=== PATIENT | female | born 1980 | race Caucasian/White ===

== ENCOUNTER 2016-12-07 19:34 | Emergency (ER) | payer OTHER ==
--- NOTE | ~2016-12-07 | US105 ---
[facility] A Service of [facility] RADIOLOGY TEXT RESULTS PATIENT: CARLOS FAN LOCATION: SED : 84 UNIT #: [id number] AGE: [address]: Simeon Delgado MD SEX: F ORDER DR: [id number] [address] [address] [id number] MR#: [id number] Acc #: [id number] NAME: CARLOS FAN : 1980 SEX: F STUDY DATE/TIME: 12/07/2016 21:07 UNIT: SED ROOM: STUDY DESCRIPTION: US Preg Uterus Ltd 1 or More Attending Physician: Simeon Delgado M.D. Ordering Physician: Simeon Delgado M.D. Primary Care Physician: Primary Care Physician No MEDICAL IMAGING REPORT This report is preliminary unless electronic signature is present. EXAM Pelvic sonogram HISTORY 36-year-old female and bleeding for approximately 3 days. LMP 10/09/2016. Beta HCG 10,714. Patient with bleeding, cramping, passing clots. FINDINGS Real-time examination demonstrates diffuse thickening of the endometrium but no visible IUP or gestational sac. Based on the beta HCG, gestational sac should be clearly visible. Findings most likely indicative of failed intrauterine . Uterus measures about 11.1 x 5.8 x about 7 cm. The endometrium is thickened measuring just over 3 cm. Imaging of the adnexa demonstrates no complex masses. The left, right ovaries appear normal. No free fluid. Both endovaginal and transabdominal scanning was performed. IMPRESSION Diffuse high-level echoes within the endometrial cavity most likely representing hemorrhagic components. No gestational sac, pole or heartbeat identified which would normally be expected based on the beta HCG of close to 11,000. Findings most likely indicative of failed intrauterine . Adnexa unremarkable. Dictated by... Lian Acharya M.D. THIS IS AN ELECTRONICALLY VERIFIED REPORT Lian Acharya M.D. at 12/08/2016 2:39 PM CHANGS/bre [facility] A Service of [facility] RADIOLOGY TEXT RESULTS PATIENT: CARLOS FAN LOCATION: SED : 82 UNIT #: [id number] AGE: [address]: Simeon Delgado MD SEX: F ORDER DR: TD: 12/08/2016 06:17 JOB #: [id number] MEDICAL IMAGING REPORT Page 1 of 1
[2016-12-07 18:05] LABS: URINE SOURCE CLEAN CATCH
[2016-12-07 18:07] LABS: URINE APPEARANCE CLEAR; URINE BILIRUBIN NEG (NEG); URINE BLOOD 3+ (NEG); URINE COLOR YELLOW; URINE GLUCOSE NEG (NORM); URINE KETONE NEG (NEG); URINE LEUKOCYTE ESTERASE NEG (NEG); URINE NITRATE POS (NEG); URINE PH 6.5 (5-8); URINE PROTEIN NEG (NEG); URINE UROBILINOGEN 0.2 MG/DL (NORM)
[2016-12-07 18:09] LABS: MICRO INDICATED? YES
[2016-12-07 18:18] LABS: CULTURE INDICATED? YES; URINE BACTERIA 3+ (NEG); URINE MUCUS PRESENT; URINE RBC 50-100 /[HPF] (0-2); URINE SQUAMOUS EPITHELIAL CELL MODERATE /[HPF]; URINE TRICHOMONAS PRESENT
[2016-12-07 18:30] LABS: BASOPHIL% 0.4 % (0-2.5); EOSINOPHIL# 0.1 X10e3 (0-0.7); EOSINOPHIL% 1.4 % (0.0-7.0); HEMATOCRIT 35.1 % (35.0-45.0); HEMOGLOBIN 11.6 gm/dL (12.0-16.0); LYMPHOCYTE# 1.8 X10e3 (1.0-3.5); LYMPHOCYTE% 21.9 % (17.0-45.0); MEAN CORPUSCULAR HEMOGLOBIN 28.3 PG (28-34); MEAN CORPUSCULAR HGB CONC 32.9 g/dL (30-36); MEAN PLATELET VOLUME 7.5 FL (6.5-11.5); MONOCYTE# 0.6 X10e3 (0-1.0); MONOCYTE% 6.7 % (3.0-12.0); NEUTROPHIL# 5.9 X10e3 (1.5-7.1); NEUTROPHIL% 69.6 % (40-75); PLATELET COUNT 284 X10e3 (140-420); RED BLOOD COUNT 4.08 X10e (3.90-5.30); RED CELL DISTRIBUTION WIDTH 15.3 % (11.0-15.5); WHITE BLOOD COUNT 8.4 X10e3 (4.0-10.5)
[2016-12-07 18:31] LABS: DIFF IND NO
[2016-12-07 18:49] LABS: ALBUMIN SERUM 3.9 g/dL (3.5-5.0); BILIRUBIN, DIRECT 0.1 mg/dL (0.0-0.2); BILIRUBIN,INDIRECT 0.5 mg/dL (0.0-0.9); BILIRUBIN,TOTAL 0.6 mg/dL (0.2-2.0); CREATININE SERUM 0.5 mg/dL (0.6-1.4); GLOM FILT RATE Estimated 126.3 mL/min (>60); POTASSIUM 3.8 mmol/L (3.5-5.1); PROTEIN TOTAL SERUM 7.2 g/dL (6.0-8.3)
[~2016-12-07 19:34] MED LIST: NAPROXEN PO; NO MEDICATIONS; ROBAXIN PO
== END 2016-12-07 22:30 | disposition home or self-care (01) ==
LOC: SED 19:34
PROVIDERS: Emergency Medicine
DX: O03.9 Complete or unspecified spontaneous abortion without complication (principal); F17.210 Nicotine dependence, cigarettes, uncomplicated
CPT/HCPCS: 36415; 76815; 76830; 80048; 80076; 81003; 84702; 85025; 87086; 87088; 87186; 96365; 96375; 99284; J0696; J1885

== ENCOUNTER 2017-05-08 10:09 | Emergency (ER) | payer OTHER ==
[2017-05-08 10:41] LABS: BASOPHIL% 0.3 % (0-2.5); EOSINOPHIL% 0.6 % (0.0-7.0); HEMATOCRIT 36.4 % (35.0-45.0); HEMOGLOBIN 12.1 gm/dL (12.0-16.0); LYMPHOCYTE# 2.1 X10e3 (1.0-3.5); LYMPHOCYTE% 32.6 % (17.0-45.0); MEAN CELL VOLUME 81.7 FL (83-96); MEAN CORPUSCULAR HEMOGLOBIN 27.2 PG (28-34); MEAN CORPUSCULAR HGB CONC 33.2 g/dL (30-36); MEAN PLATELET VOLUME 7.3 FL (6.5-11.5); MONOCYTE# 0.7 X10e3 (0-1.0); MONOCYTE% 11.7 % (3.0-12.0); NEUTROPHIL# 3.5 X10e3 (1.5-7.1); NEUTROPHIL% 54.8 % (40-75); PLATELET COUNT 248 X10e3 (140-420); RED BLOOD COUNT 4.45 X10e (3.90-5.30); RED CELL DISTRIBUTION WIDTH 17.4 % (11.0-15.5); WHITE BLOOD COUNT 6.4 X10e3 (4.0-10.5)
[2017-05-08 10:42] LABS: DIFF IND NO
== END 2017-05-08 11:35 | disposition home or self-care (01) ==
LOC: SED 10:09
PROVIDERS: Physician Assistant Medical
DX: N93.8 Other specified abnormal uterine and vaginal bleeding (principal); F17.210 Nicotine dependence, cigarettes, uncomplicated
CPT/HCPCS: 36415; 84703; 85025; 99284